=== PATIENT | male | born 1985 | race Caucasian/White ===

== ENCOUNTER 2017-03-19 07:08 | Emergency (ER) | payer OTHER ==
[~2017-03-19 07:08] MED LIST: AUGMENTIN875 MG PO
== END 2017-03-19 07:31 | disposition home or self-care (01) ==
LOC: FER 07:08
DX: M77.9 Enthesopathy, unspecified (principal); Z86.19 Personal history of other infectious and parasitic diseases; Z88.2 Allergy status to sulfonamides
CPT/HCPCS: 99283

== ENCOUNTER 2020-11-26 22:06 | Emergency (ER) | payer OTHER ==
[2020-11-26 22:59] LABS: BASOPHIL 0.5 % (0-2); EOSINOPHIL 0.2 % (0-5); HCT 48.4 % (42.0-52.0); HGB 14.9 g/dl (13.2-18.0); LYMPHOCYTE 41.3 % (15-48); MCH 29.2 pg (25.0-31.0); MCHC 30.8 g/dL (32.0-36.0); MCV 94.7 fL (78.0-100.0); MONOCYTE 0.7 % (0-12); NEUTROPHIL 57.1 % (41-80); NRBC 0.7; RBC 5.11 M/uL (4.70-6.00); RDW 13.2 % (11.5-14.0)
[2020-11-26 23:12] LABS: ACETAMINOPHEN (TYLENOL) < 2.0 ug/mL (10.0-30.0); ALBUMIN 3.5 g/dL (3.4-5.0); ALKALINE PHOSHATASE 119 U/L (46-116); ALT 32 U/L (16-63); AST 83 U/L (15-37); BILIRUBIN - TOTAL 0.8 mg/dL (0.2-1.0); BUN 25 mg/dL (7-18); CHLORIDE 97 mmol/L (98-107); CO2 (BICARBONATE) 12 mmol/L (21-32); CPK 377 U/L (39-308); CREATININE 2.09 mg/dL (0.67-1.17); GLOBULIN (CALCULATION) 3.1 g/dL; GLUCOSE 61 mg/dL (74-106); LIPASE 56 U/L (73-393); POTASSIUM 3.8 mmol/L (3.5-5.1); TOTAL PROTEIN 6.6 g/dL (6.4-8.2)
[2020-11-26 23:27] LABS: LACTIC ACID 18.8 mmol/L (0.4-1.9)
[2020-11-26 23:31] LABS: PLT 21 K/uL (150-400); WBC 5.5 K/uL (4.0-10.5)
[2020-11-26 23:38] LABS: SALICYLATE 1 mg/dL (2.8-20.0)
[2020-11-27 02:07] LABS: HCT 24.3 % (42.0-52.0); MCH 29.2 pg (25.0-31.0); MCHC 28.4 g/dL (32.0-36.0); MPV 11.3 fL (6.0-9.5); RBC 2.36 M/uL (4.70-6.00); RDW 13.2 % (11.5-14.0); WBC 5.9 K/uL (4.0-10.5)
[2020-11-27 02:08] LABS: HGB 6.9 g/dl (13.2-18.0)
== END 2020-11-27 09:06 | disposition expired ==
LOC: FER 22:06
PROVIDERS: Emergency Medicine Emergency Medical Services
DX: A41.9 Sepsis, unspecified organism (principal); R65.21 Severe sepsis with septic shock; D65 Disseminated intravascular coagulation [defibrination syndrome]; E87.2 Acidosis; F17.290 Nicotine dependence, other tobacco product, uncomplicated; Z88.2 Allergy status to sulfonamides; Z86.19 Personal history of other infectious and parasitic diseases; Z20.822 Contact with and (suspected) exposure to COVID-19
CPT/HCPCS: 36415; 36430; 36600; 70450; 71045; 71250; 71275; 72193; 80053; 80178; 82550; 82803; 83605; 83690; 84145; 84484; 85025; 85379; 86922; 87040; 92950; 93005; 94002; 96365; 96366; 96375; 96376; G0480; J0171; J0610; J0692; J1250; J1720; J2250; J2370; J3370; J7030; J7040; J7050; J7060; J7070; P9016; Q9967; U0002